=== PATIENT | female | born 1950 | race Caucasian/White ===

== ENCOUNTER 2017-08-27 18:42 | Inpatient (IN) | payer OTHER, MEDICARE ==
[2017-08-27] MEDS ORDERED: Sodium Chloride 0.9% 1,000 ML IV ONE (19:28)
[2017-08-27] MEDS ORDERED: HYDROmorphone 1 mg/mL 1mL Syr IVP STA (19:28)
--- NOTE | 2017-08-27 19:34 | ED Physician Chart ---
ED Chief Complaint/HPI - Patient Information Date Seen:: 08/27/17 Time Seen:: 19:10 Chief Complaint:: abdominal pain History of Present Illness:: Patient had onset yesterday of left lower quadrant abdominal pain. She's been nauseated but had no vomiting or diarrhea. With the patient supine the pain is a 5 out of 10 when she ambulates the pain increases to 9 or 10 out of 10. Patient denies dysuria. Patient has had some diaphoresis but has not taken her temperature. Allergies:: Allergies Allergy/AdvReac Type Severity Reaction Status Date / Time No Known Allergies Allergy Verified 08/27/17 18:56 Vitals:: Vital Signs - 8 hr 08/27/17 18:58 Temp 97.5 F HR 70 RR 18 BP 182/54 O2 Sat % 96 Historian:: Patient, Family Member Review:: Nurse's Note Reviewed ED Review of Systems - Review of Systems General/Constitutional: Diaphoresis Skin: No skin lesions Head: No headache Eyes: No loss of vision ENT: No earache Neck: No neck pain Cardio Vascular: No chest pain, No palpitations Pulmonary: No SOB, No cough GI: Nausea, No vomiting, No diarrhea G/U: No dysuria Musculoskeletal: No bone or joint pain Endocrine: No polyuria, No polydipsia Psychiatric: No prior psych history Hematopoietic: No bruising Allergic/Immuno: No urticaria Neurological: No syncope, No focal symptoms ED Past Medical History - Past Medical History Past Medical History: HTN, Asthma/COPD Family History: Diabetes Melitus Social History: Non Smoker, No Alcohol Surgical History: None Psychiatricy History: None ED Labs/Radiology/EKG Results - Lab Results Results: Laboratory Results - last 24 hr 08/27/17 08/27/17 19:35 19:35 WBC 7.1 RBC 4.58 Hgb 12.8 Hct 37.8 L MCV 82.5 MCH 28.0 MCHC Differential 33.9 RDW 14.0 Plt Count 309 MPV 7.9 Neutrophils % 58.2 Lymphocytes % 25.9 Monocytes % 8.5 Eosinophils % 7.3 H Basophils % 0.1 Sodium 136 Potassium 3.3 L Chloride 103 Carbon Dioxide 25.9 Anion Gap 10.4 BUN 14 Creatinine 0.8 Est GFR ( Amer) > 60.0 Est GFR (Non-Af Amer) > 60.0 BUN/Creatinine Ratio 17.5 Glucose 129 H Calcium 8.9 Lipase 25 - Radiology Results Results: CT of abdomen and pelvis showed diverticulosis and diverticulitis ED Septic Shock - . Is Septic Shock (SBP<90, OR Lactate>4 mmol\L) present?: No - <6hrs of presentation: Vital Signs: Vital Signs - 8 hr 08/27/17 18:58 Temp 97.5 F HR 70 RR 18 BP 182/54 O2 Sat % 96 ED Reassessment (Disposition) - Reassessment Reassessment Condition:: Improved - Diagnosis Diagnosis:: Diverticulosis and diverticulitis - Patient Disposition Admitted to:: Med/Surg Spoke to:: Mian Claros Admitting Medical Physician:: Mian Claros Condition at Disposition:: Stable, Unchanged
[2017-08-27 19:42] LABS: % BASOPHILS 0.1 % (0.0-2.0); % EOSINOPHILS 7.3 % (0.0-5.0); % LYMPHOCYTES 25.9 % (20.0-50.0); % MONOCYTES 8.5 % (2.0-10.0); % NEUTROPHILS 58.2 % (40.0-80.0); HEMATOCRIT 37.8 % (41.0-60); HEMOGLOBIN 12.8 gm/dL (12-16); MEAN CELL VOLUME 82.5 fl (81-100); MEAN CORPUSCULAR HGB CONC 33.9 pg (28.0-36.0); MEAN PLATELET VOLUME 7.9 fl; NEUTROPHILE ABSOLUTE 4.2 Th/cmm (1.8-8.0); PLATELET COUNT 309 Th/cmm (150-400); RED BLOOD COUNT 4.58 Mil/cmm (3.80-5.20); WHITE BLOOD COUNT 7.1 Th/cmm (4.8-10.8)
[2017-08-27 19:56] LABS: ANION GAP 10.4 (7.0-16.0); BUN - UREA NITROGEN 14 mg/dL (7-25); BUN/CREATININE RATIO 17.5; CALCIUM SERUM 8.9 mg/dL (8.6-10.3); CARBON DIOXIDE 25.9 mEq/L (21.0-31.0); CHLORIDE 103 mEq/L (98-107); CREATININE - SERUM 0.8 mg/dL (0.6-1.2); GLUCOSE 129 mg/dL (70-105); LIPASE 25 U/L (11-82); POTASSIUM SERUM 3.3 mEq/L (3.5-5.1); SODIUM SERUM 136 mEq/L (136-145)
[2017-08-27] MEDS ORDERED: HYDROmorphone 1 mg/mL 1mL Syr ONE (20:19)
[2017-08-27] MEDS ORDERED: Potassium Chloride 20 mEq ER Tab PO ONE ×2 (21:59→22:13)
[2017-08-27 23:07] LABS: URINE BILIRUBIN NEGATIVE (NEGATIVE); URINE BLOOD NEGATIVE (NEGATIVE); URINE GLUCOSE (UA) NEGATIVE (NEGATIVE); URINE KETONE NEGATIVE (NEGATIVE); URINE PROTEIN NEGATIVE (NEGATIVE); URINE UROBILINOGEN 0.2 E.U./dL (0.2 - 1.0)
[2017-08-27 23:13] LABS: URINE COLOR STRAW
[2017-08-27 23:20] LABS: URINE BACTERIA NONE SEEN /hpf (NONE SEEN); URINE EPITHELIAL CELLS FEW /lpf (FEW); URINE RBC NONE SEEN /hpf (0-5); URINE WBC 0-2 /hpf (0-5)
[2017-08-28] MEDS: D5-0.45NS 1,000 ML IV SCH ×2 (00:11→18:03)
[2017-08-28 00:23] VITALS: BP 162/84
[2017-08-28] MEDS ORDERED: Morphine Sulfate 2 mg/mL 1mL Syr IVP PRN (00:27)
[2017-08-28] MEDS: Ampicillin Sodium/Sulbactam 3 GM in Sodium Chloride 0.9% 100 ML IV SCH ×4 (00:53→18:02)
--- NOTE | 2017-08-28 08:12 | Diagnostic Imaging Report ---
CT abdomen and pelvis without intravenous contrast Indication: Left lower quadrant pain Comparison: None, Technique: Axial images were obtained from the lung bases to the bilateral proximal femurs without IV contrast. Coronal reconstructions were made. total DLP: 329, CTDI7.6 FINDINGS: Hypoventilatory changes of the lung bases are noted. Assessment of the solid organs is limited due to lack of IV contrast. No evidence of focal hepatic or splenic lesions. No focal pancreatic or adrenal lesions. No evidence of hydronephrosis or focal renal lesions. Distended urinary bladder is noted. No evidence of diverticulosis. There are mild inflammatory changes seen along the small bowel loops seen along the left hemiabdomen with mild areas of small bowel wall thickening and few borderline prominent mesenteric lymph nodes in this region. No evidence of free fluid or free air. Mild atherosclerotic vascular disease is noted. Mild degenerative changes spine and pelvis are noted. IMPRESSION: Minimal haziness and inflammatory changes along the left mid abdomen surrounding small bowel loops with mild areas of small bowel wall prominence and a few mildly prominent mesenteric lymph nodes in this region. Findings may be due to infectious/inflammatory process, possible enteritis. Clinical correlation and follow-up is recommended No evidence of diverticulosis. Mild atherosclerotic vascular disease.
[2017-08-28] MEDS ORDERED: HYDROmorphone 2 mg/mL 1mL Vial IVP PRN (09:02)
--- NOTE | 2017-08-28 10:49 | History & Physical ---
ADMIT DATE: PATIENT IDENTIFICATION: A 67-year-old female. CHIEF COMPLAINT: Lower abdominal pain for last 2 days. HISTORY OF PRESENT ILLNESS: A 67-year-old Citizen Of [place] female with history of hypertension, osteoarthritis, asthma, had colonoscopy done approximately 3 months ago at [facility]. As per patient's account, colonoscopy was unremarkable, but patient was started to have pain 2 days prior to presentation to the Emergency Room at the left lower part of the abdomen. According to the patient, pain started by itself and pain was increasing when she stands up, and when she lies down it decreases. Pain intensity increased to the extent that she needed immediate medical attention. The patient did have associated fever, chills, and nausea. The patient did not have any vomiting. Did not have any hematuria, hematochezia, or melena. No history of any seizure or syncopal episode. The patient does have intermittent constipation, but no alternate diarrhea and constipation. The patient denies any chest pain, shortness of breath, palpitations, or headache. Denies any diplopia. PAST MEDICAL HISTORY: Remarkable for; 1. Hypertension. 2. Asthma. 3. DJD. MEDICATIONS AT HOME: Metoprolol, Lasix, ibuprofen, and albuterol inhaler. ALLERGIES: The patient is not allergic to medications. SOCIAL HISTORY: She lives with family in [facility]. The patient has no history of any smoking cigarette, drinking alcohol, or using street drug use. FAMILY MEDICAL HISTORY: Remarkable for hypertension. REVIEW OF SYSTEMS: As I mentioned in history of present illness. PHYSICAL EXAMINATION: GENERAL: The patient is alert, awake, oriented, lying in the bed. VITAL SIGNS: Temperature 97.1, pulse is 60, respiratory rate 18, and blood pressure 143/78. SKIN: Warm to touch. HEENT: Normocephalic, atraumatic. Extraocular muscles are intact. Tongue more pink and coated. Poor dentition noted. No oral lesion, no exudate. No sinus tenderness. External auditory canal and tympanic membranes are well visualized. NECK: Supple. No JVD, no hepatojugular reflex. No lymphadenopathy, thyromegaly, or carotid bruit. HEART: Both heart sounds are regular. No S3, no S4, no murmur. CHEST: Lung equal in expansion. No wheezing, no crackles. ABDOMEN: Soft. Significant left lower quadrant tenderness noted without guarding or rigidity. Bowel sounds are present. No palpable mass. EXTREMITIES: No edema, no cyanosis, no clubbing. Pulses are +2. No calf tenderness noted. NEUROLOGIC: Nonfocal. AVAILABLE DIAGNOSTIC DATA: CT scan of the abdomen and pelvis done in the Emergency Room, which revealed the patient had evidence of inflammatory changes in the left mid abdomen, surrounding small bowel loops with mild area of small bowel wall prominence and few mildly prominent mesenteric node consistent with infectious and inflammatory process. There was no evidence of diverticulosis noted. LABORATORY DATA: Available white count of 7.1, hemoglobin 12.8, platelet count 309, hematocrit 37.8, eosinophil 7.3, and potassium 3.3. BUN and creatinine 14 and 0.8, glucose of 129. Urine is unremarkable. CLINICAL IMPRESSION: 1. Acute left lower quadrant abdominal pain. CT scan of the abdomen and pelvis consistent with inflammatory changes involving left mid abdomen consistent with acute enteritis and etiology of enteritis probably inflammatory, most likely from infectious etiology, cannot rule out etiology of inflammatory versus ischemic changes considering the patient's age and hypertension with cholesterol status being unknown. 2. Hypertension. 3. Asthma. 4. Degenerative joint disease. PLAN: 1. Admit this patient to Med-Surg floor. 2. IV fluid. 3. IV antibiotic. 4. N.p.o. 5. GI consult. 6. Follow up lab. 7. Follow fitness consultant's recommendation. 8. Physical therapy evaluation. 9. Care plan reviewed and discussed. [facility]# [id number]
[2017-08-28] MEDS ORDERED: VTE Chemical Prophylaxis Screen/Admission MC PRN (13:06)
[2017-08-28] MEDS ORDERED: Probiotic Screen MC PRN (13:51)
[2017-08-29] MEDS: Morphine Sulfate 2 mg/mL 1mL Syr IVP PRN ×4 (00:09→20:41)
[2017-08-29] MEDS: Ampicillin Sodium/Sulbactam 3 GM in Sodium Chloride 0.9% 100 ML IV SCH ×4 (00:09→17:33)
[2017-08-29 06:38] LABS: % BASOPHILS 0.1 % (0.0-2.0); % EOSINOPHILS 1.9 % (0.0-5.0); % LYMPHOCYTES 13.7 % (20.0-50.0); % MONOCYTES 9.4 % (2.0-10.0); % NEUTROPHILS 74.9 % (40.0-80.0); HEMATOCRIT 36.6 % (41.0-60); HEMOGLOBIN 12.5 gm/dL (12-16); MEAN CELL VOLUME 82.1 fl (81-100); MEAN CORPUSCULAR HEMOGLOBIN 28.2 pg (27.0-31.0); MEAN CORPUSCULAR HGB CONC 34.3 pg (28.0-36.0); MEAN PLATELET VOLUME 8.1 fl; NEUTROPHILE ABSOLUTE 6.8 Th/cmm (1.8-8.0); PLATELET COUNT 296 Th/cmm (150-400); RED BLOOD COUNT 4.45 Mil/cmm (3.80-5.20); RED CELL DISTRIBUTION WIDTH 14.2 % (11.5-20.0)
[2017-08-29 06:52] LABS: ALB/GLOB RATIO 1.3 (1.0-1.8); ALKALINE PHOSPHATASE 87 U/L (34-104); ANION GAP 6.6 (7.0-16.0); BILIRUBIN,TOTAL 0.5 mg/dL (0.3-1.0); BUN - UREA NITROGEN 8 mg/dL (7-25); BUN/CREATININE RATIO 11.4; CARBON DIOXIDE 29.8 mEq/L (21.0-31.0); CHLORIDE 104 mEq/L (98-107); CREATININE - SERUM 0.7 mg/dL (0.6-1.2); GLUCOSE 106 mg/dL (70-105); POTASSIUM SERUM 3.4 mEq/L (3.5-5.1); SGOT 49 U/L (13-39); SGPT/ALT 38 U/L (7-52); SODIUM SERUM 137 mEq/L (136-145)
[2017-08-29] MEDS: Lactobacillus Rhamnosus 10 Billion CFU Capsule PO SCH (08:01)
[2017-08-29] MEDS: D5-0.45NS 1,000 ML IV SCH (08:47)
--- NOTE | 2017-08-29 09:09 | GI Progress Note ---
Subjective - Review of Systems Subjective: STILL HAS LEFT SIDED PAIN Objective - Results Result Diagrams: 08/29/17 05:57 08/29/17 05:51 Recent Labs: Laboratory Last Values WBC 9.0 Th/cmm (4.8-10.8) D 08/29/17 05:57 RBC 4.45 Mil/cmm (3.80-5.20) 08/29/17 05:57 Hgb 12.5 gm/dL (12-16) 08/29/17 05:57 Hct 36.6 % (41.0-60) L 08/29/17 05:57 MCV 82.1 fl (81-100) 08/29/17 05:57 MCH 28.2 pg (27.0-31.0) 08/29/17 05:57 MCHC Differential 34.3 pg (28.0-36.0) 08/29/17 05:57 RDW 14.2 % (11.5-20.0) 08/29/17 05:57 Plt Count 296 Th/cmm (150-400) 08/29/17 05:57 MPV 8.1 fl 08/29/17 05:57 Neutrophils % 74.9 % (40.0-80.0) 08/29/17 05:57 Lymphocytes % 13.7 % (20.0-50.0) L 08/29/17 05:57 Monocytes % 9.4 % (2.0-10.0) 08/29/17 05:57 Eosinophils % 1.9 % (0.0-5.0) 08/29/17 05:57 Basophils % 0.1 % (0.0-2.0) 08/29/17 05:57 Sodium 137 mEq/L (136-145) 08/29/17 05:51 Potassium 3.4 mEq/L (3.5-5.1) L 08/29/17 05:51 Chloride 104 mEq/L (98-107) 08/29/17 05:51 Carbon Dioxide 29.8 mEq/L (21.0-31.0) 08/29/17 05:51 Anion Gap 6.6 (7.0-16.0) L 08/29/17 05:51 BUN 8 mg/dL (7-25) 08/29/17 05:51 Creatinine 0.7 mg/dL (0.6-1.2) 08/29/17 05:51 Est GFR ( Amer) > 60.0 ml/min (>90) 08/29/17 05:51 Est GFR (Non-Af Amer) > 60.0 ml/min 08/29/17 05:51 BUN/Creatinine Ratio 11.4 08/29/17 05:51 Glucose 106 mg/dL (70-105) H 08/29/17 05:51 POC Glucose 112 MG/DL (70 - 105) H 08/28/17 10:15 Calcium 9.0 mg/dL (8.6-10.3) 08/29/17 05:51 Total Bilirubin 0.5 mg/dL (0.3-1.0) 08/29/17 05:51 AST 49 U/L (13-39) H 08/29/17 05:51 ALT 38 U/L (7-52) 08/29/17 05:51 Alkaline Phosphatase 87 U/L (34-104) 08/29/17 05:51 Total Protein 6.3 gm/dL (6.0-8.3) 08/29/17 05:51 Albumin 3.5 gm/dL (3.7-5.3) L 08/29/17 05:51 Globulin 2.8 gm/dL 08/29/17 05:51 Albumin/Globulin Ratio 1.3 (1.0-1.8) 08/29/17 05:51 Lipase 25 U/L (11-82) 08/27/17 19:35 Urine Source CLEAN C 08/27/17 20:00 Urine Color STRAW 08/27/17 20:00 Urine Clarity CLEAR (CLEAR) 08/27/17 20:00 Urine pH 6.0 (4.6 - 8.0) 08/27/17 20:00 Ur Specific [place] <= 1.005 (1.005-1.030) 08/27/17 20:00 Urine Protein NEGATIVE mg/dL (NEGATIVE) 08/27/17 20:00 Urine Glucose (UA) NEGATIVE mg/dL (NEGATIVE) 08/27/17 20:00 Urine Ketones NEGATIVE mg/dL (NEGATIVE) 08/27/17 20:00 Urine Blood NEGATIVE (NEGATIVE) 08/27/17 20:00 Urine Nitrate NEGATIVE (NEGATIVE) 08/27/17 20:00 Urine Bilirubin NEGATIVE (NEGATIVE) 08/27/17 20:00 Urine Urobilinogen 0.2 E.U./dL (0.2 - 1.0) 08/27/17 20:00 Ur Leukocyte Esterase TRACE (NEGATIVE) H 08/27/17 20:00 Urine RBC NONE SEEN /hpf (0-5) 08/27/17 20:00 Urine WBC 0-2 /hpf (0-5) 08/27/17 20:00 Ur Epithelial Cells FEW /lpf (FEW) 08/27/17 20:00 Urine Bacteria NONE SEEN /hpf (NONE SEEN) 08/27/17 20:00 Gentamicin Trough 1.9 ug/ml (0.2-2.0) H 08/28/17 21:00 - Physical Exam Vitals and I&O: Vital Signs Temp 97.7 F 08/29/17 08:00 Pulse 61 08/29/17 08:00 Resp 18 08/29/17 08:00 BP 132/72 08/29/17 08:00 Pulse Ox 97 08/29/17 08:00 Intake & Output 08/28/17 08/29/17 08/29/17 18:59 06:59 18:59 Intake Total 1407.333 141.667 957.5 Balance 1407.333 141.667 957.5 Weight (lbs) 68.039 kg Intake: Intake, IV Amount 1407.333 141.667 957.5 Ampicillin Sodium/ 258.333 141.667 Sulbactam 3 gm In Sodium Chloride 0.9% 100 ml @ 100 mls/hr IV Q6HR [facility] Rx #:[id number] D5-0.45NS 1,000 ml @ 75 1042.5 957.5 mls/hr IV .[id number] [facility] Rx #:[id number] Gentamicin 260 mg In 106.5 Sodium Chloride 0.9% 100 ml @ 100 mls/hr IV Q36H [facility] Rx#:[id number] Active Medications: Current Medications Heparin Sodium (Porcine) (Heparin) 5,000 units SUBQ Q12H [facility] Stop: 10/27/17 20:59 Last Admin: 08/29/17 08:02 Dose: 5,000 units Ampicillin Sodium/Sulbactam (Sodium 3 gm/ Sodium Chloride) 100 mls @ 100 mls/ hr IV Q6HR [facility] Stop: 10/27/17 00:00 Last Admin: 08/29/17 05:49 Dose: 100 mls/hr Dextrose/Sodium Chloride (D5-0.45ns) 1,000 mls @ 75 mls/hr IV .[id number] [facility] Stop: 10/26/17 23:56 Last Admin: 08/29/17 08:47 Dose: 75 mls/hr Gentamicin Sulfate 260 mg/ (Sodium Chloride) 106.5 mls @ 100 mls/hr IV Q36H [facility] Stop: 10/27/17 10:59 Last Infusion: 08/28/17 18:37 Dose: Infused Lactobacillus Rhamnosus (Culturelle) 1 each PO DAILY [facility] Stop: 10/28/17 08:59 Last Admin: 08/29/17 08:01 Dose: 1 each Metoprolol Succinate (Toprol Xl) 100 mg PO DAILY [facility] Stop: 10/27/17 10:59 Last Admin: 08/29/17 08:04 Dose: 100 mg Miscellaneous (Gentamicin Iv Per Pharmacy) 1 ea MC PRN [facility] Stop: 10/27/17 09:14 Miscellaneous (Vte Chemical Prophylaxis Screen/ Admission) 1 ea MC PRN PRN PRN Reason: PROTOCOL Stop: 10/27/17 13:05 Miscellaneous (Probiotic Screen) 1 ea MC PRN PRN PRN Reason: PROTOCOL Stop: 10/27/17 13:50 Morphine Sulfate (Morphine) 2 mg IVP Q4HR PRN PRN Reason: Abdominal Pain Stop: 10/27/17 14:41 Last Admin: 08/29/17 06:09 Dose: 2 mg Ondansetron HCl (Zofran) 4 mg IV Q6H PRN PRN Reason: Nausea / Vomiting Stop: 10/27/17 00:27 Last Admin: 08/29/17 08:53 Dose: 4 mg Assessment/Plan - Problem List Patient Problems: All Active Problems LEFT LOWER QUADRANT PAIN (Acute) - Assessment Assessment: 67 YO FEMALE WITH LLQ PAIN CT SHOWED ENTERITIS 1.CHECK SBFT 2.CONT ABX
[2017-08-29] MEDS ORDERED: Diatrizoate Meglumine/Diatri 30 mL Sol PO ONE (09:10)
--- NOTE | 2017-08-29 13:34 | Consultation ---
DATE OF CONSULTATION: 08/28/2017 REASON FOR CONSULTATION: Abdominal pain, nausea, vomiting. HISTORY OF PRESENT ILLNESS: This consult was obtained through the request of Dr. Claros for this 67-year-old with history of hypertension, asthma, degenerative joint disease, presenting to the hospital with abdominal pain of 2 days duration involving the left side with the back as well. The patient had fever. She has lost few pounds of weight. She had constipation. The patient was admitted with impression she might have diverticulitis, but had a CAT scan, which did not show that, but showed possible enteritis. The patient seems very sick, nauseated. It seemed the nausea started after she came to the hospital. PAST MEDICAL HISTORY: Hypertension, asthma, degenerative joint disease. PAST SURGICAL HISTORY: Negative. SOCIAL HISTORY: Nonsmoker, nonalcoholic, IV drug abuser. FAMILY HISTORY: Noncontributory. ALLERGIES: No known drug allergy. MEDICATIONS: The patient is on amoxicillin, gentamicin, Dilaudid, metoprolol, Zofran. REVIEW OF SYSTEMS: Few pounds of weight loss. No diarrhea. She occasionally has constipation. She had fever. PHYSICAL EXAMINATION: GENERAL: The patient is awake, oriented to self, place, and time, moderately severe distress secondary to nausea and pain. VITAL SIGNS: Blood pressure is 140/81, heart rate 70, respiratory rate 16, temperature is 97.5. HEAD AND NECK: Pupils reactive to light. Extraocular muscles intact. Sclerae are anicteric. Conjunctivae not pale. Oral cavity, no lesion. NECK: Supple, no jugular venous distention, no carotid bruit or lymph node. CHEST: She has good respiratory movements. LUNGS: Clear to auscultation. CARDIOVASCULAR: Regular rate and rhythm. No murmur or gallop. ABDOMEN: Soft, positive bowel sound, positive left-sided tenderness. EXTREMITIES: No edema. CENTRAL NERVOUS SYSTEM: Grossly nonfocal. LABORATORY DATA: White count is normal, H and H normal. Glucose 129. Liver enzymes were not tested. X-RAYS: The patient had a CAT scan with oral contrast, which showed some haziness and inflammation around the left mid abdomen, around the small bowel loops and some prominence of the cintron and mesenteric lymph nodes and possibility of enteritis was raised. There is no diverticulosis. ASSESSMENT AND PLAN: 1. Abdominal pain, nausea, and vomiting, this picture is consistent was enteritis. The patient already had a colonoscopy 3 months ago, so at this time, this most likely infectious enteritis. So recommendations: 1. IV fluids. 2. IV antibiotics. 3. Stool studies for O and P, C and S. 4. If patient is improving, continue, if not small bowel follow through. 2. Nausea, vomiting, most probably secondary to #1. We will continue with antibiotics and Zofran, if not improving, might consider changing the antibiotics. Other medical problems include hypertension, asthma, degenerative joint disease, etc., as per Dr. Claros. Thank you, Dr. Claros for allowing me to participate in the care of the patient. If you have any further questions, please let me know. JOB# [id number]
[2017-08-29 17:51] LABS: % BASOPHILS 0.3 % (0.0-2.0); % EOSINOPHILS 1.3 % (0.0-5.0); % LYMPHOCYTES 16.5 % (20.0-50.0); % MONOCYTES 5.3 % (2.0-10.0); % NEUTROPHILS 76.6 % (40.0-80.0); HEMOGLOBIN 12.8 gm/dL (12-16); MEAN CELL VOLUME 83.4 fl (81-100); MEAN CORPUSCULAR HEMOGLOBIN 27.9 pg (27.0-31.0); MEAN CORPUSCULAR HGB CONC 33.5 pg (28.0-36.0); MEAN PLATELET VOLUME 7.7 fl; PLATELET COUNT 333 Th/cmm (150-400); RED BLOOD COUNT 4.56 Mil/cmm (3.80-5.20); RED CELL DISTRIBUTION WIDTH 14.2 % (11.5-20.0); WHITE BLOOD COUNT 7.8 Th/cmm (4.8-10.8)
[2017-08-29] MEDS: metroNIDAZOLE 500mg/NS 100mL 500 MG/100 ML BAG IV SCH (20:42)
[2017-08-30] MEDS: Ampicillin Sodium/Sulbactam 3 GM in Sodium Chloride 0.9% 100 ML IV SCH ×5 (00:42→23:34)
[2017-08-30] MEDS: D5-0.45NS 1,000 ML IV SCH ×2 (00:42→20:01)
[2017-08-30] MEDS: Morphine Sulfate 2 mg/mL 1mL Syr IVP PRN ×4 (00:42→20:02)
[2017-08-30] MEDS: Anusol Supp RC SCH ×2 (00:43→20:07)
[2017-08-30] MEDS: metroNIDAZOLE 500mg/NS 100mL 500 MG/100 ML BAG IV SCH ×3 (04:26→20:08)
[2017-08-30] MEDS: Lactobacillus Rhamnosus 10 Billion CFU Capsule PO SCH (08:30)
[2017-08-30 09:00] LABS: % BASOPHILS 0.3 % (0.0-2.0); % EOSINOPHILS 2.5 % (0.0-5.0); % LYMPHOCYTES 21.3 % (20.0-50.0); % MONOCYTES 9.7 % (2.0-10.0); % NEUTROPHILS 66.2 % (40.0-80.0); HEMATOCRIT 36.6 % (41.0-60); HEMOGLOBIN 12.1 gm/dL (12-16); MEAN CELL VOLUME 83.4 fl (81-100); MEAN CORPUSCULAR HEMOGLOBIN 27.5 pg (27.0-31.0); MEAN PLATELET VOLUME 7.6 fl; NEUTROPHILE ABSOLUTE 4.5 Th/cmm (1.8-8.0); PLATELET COUNT 325 Th/cmm (150-400); RED BLOOD COUNT 4.39 Mil/cmm (3.80-5.20); RED CELL DISTRIBUTION WIDTH 13.9 % (11.5-20.0); WHITE BLOOD COUNT 6.7 Th/cmm (4.8-10.8)
--- NOTE | 2017-08-30 09:02 | GI Progress Note ---
Subjective - Review of Systems Subjective: STILL HAS LEFT SIDED PAIN BUT SLIGHTLY BETTER LAST NIGHT HAD BLOOD WITH BM NO DIARRHEA OR BLEEDING TODAY Objective - Results Result Diagrams: 08/29/17 17:43 08/29/17 05:51 Recent Labs: Laboratory Last Values WBC 7.8 Th/cmm (4.8-10.8) 08/29/17 17:43 RBC 4.56 Mil/cmm (3.80-5.20) 08/29/17 17:43 Hgb 12.8 gm/dL (12-16) 08/29/17 17:43 Hct 38.0 % (41.0-60) L 08/29/17 17:43 MCV 83.4 fl (81-100) 08/29/17 17:43 MCH 27.9 pg (27.0-31.0) 08/29/17 17:43 MCHC Differential 33.5 pg (28.0-36.0) 08/29/17 17:43 RDW 14.2 % (11.5-20.0) 08/29/17 17:43 Plt Count 333 Th/cmm (150-400) 08/29/17 17:43 MPV 7.7 fl 08/29/17 17:43 Neutrophils % 76.6 % (40.0-80.0) 08/29/17 17:43 Lymphocytes % 16.5 % (20.0-50.0) L 08/29/17 17:43 Monocytes % 5.3 % (2.0-10.0) 08/29/17 17:43 Eosinophils % 1.3 % (0.0-5.0) 08/29/17 17:43 Basophils % 0.3 % (0.0-2.0) 08/29/17 17:43 Sodium 137 mEq/L (136-145) 08/29/17 05:51 Potassium 3.4 mEq/L (3.5-5.1) L 08/29/17 05:51 Chloride 104 mEq/L (98-107) 08/29/17 05:51 Carbon Dioxide 29.8 mEq/L (21.0-31.0) 08/29/17 05:51 Anion Gap 6.6 (7.0-16.0) L 08/29/17 05:51 BUN 8 mg/dL (7-25) 08/29/17 05:51 Creatinine 0.7 mg/dL (0.6-1.2) 08/29/17 05:51 Est GFR ( Amer) > 60.0 ml/min (>90) 08/29/17 05:51 Est GFR (Non-Af Amer) > 60.0 ml/min 08/29/17 05:51 BUN/Creatinine Ratio 11.4 08/29/17 05:51 Glucose 106 mg/dL (70-105) H 08/29/17 05:51 POC Glucose 112 MG/DL (70 - 105) H 08/28/17 10:15 Calcium 9.0 mg/dL (8.6-10.3) 08/29/17 05:51 Total Bilirubin 0.5 mg/dL (0.3-1.0) 08/29/17 05:51 AST 49 U/L (13-39) H 08/29/17 05:51 ALT 38 U/L (7-52) 08/29/17 05:51 Alkaline Phosphatase 87 U/L (34-104) 08/29/17 05:51 Total Protein 6.3 gm/dL (6.0-8.3) 08/29/17 05:51 Albumin 3.5 gm/dL (3.7-5.3) L 08/29/17 05:51 Globulin 2.8 gm/dL 08/29/17 05:51 Albumin/Globulin Ratio 1.3 (1.0-1.8) 08/29/17 05:51 Lipase 25 U/L (11-82) 08/27/17 19:35 Urine Source CLEAN C 08/27/17 20:00 Urine Color STRAW 08/27/17 20:00 Urine Clarity CLEAR (CLEAR) 08/27/17 20:00 Urine pH 6.0 (4.6 - 8.0) 08/27/17 20:00 Ur Specific [place] <= 1.005 (1.005-1.030) 08/27/17 20:00 Urine Protein NEGATIVE mg/dL (NEGATIVE) 08/27/17 20:00 Urine Glucose (UA) NEGATIVE mg/dL (NEGATIVE) 08/27/17 20:00 Urine Ketones NEGATIVE mg/dL (NEGATIVE) 08/27/17 20:00 Urine Blood NEGATIVE (NEGATIVE) 08/27/17 20:00 Urine Nitrate NEGATIVE (NEGATIVE) 08/27/17 20:00 Urine Bilirubin NEGATIVE (NEGATIVE) 08/27/17 20:00 Urine Urobilinogen 0.2 E.U./dL (0.2 - 1.0) 08/27/17 20:00 Ur Leukocyte Esterase TRACE (NEGATIVE) H 08/27/17 20:00 Urine RBC NONE SEEN /hpf (0-5) 08/27/17 20:00 Urine WBC 0-2 /hpf (0-5) 08/27/17 20:00 Ur Epithelial Cells FEW /lpf (FEW) 08/27/17 20:00 Urine Bacteria NONE SEEN /hpf (NONE SEEN) 08/27/17 20:00 Stool Leukocyte NO WBC SEEN 08/29/17 11:50 Gentamicin Trough 1.9 ug/ml (0.2-2.0) H 08/28/17 21:00 - Physical Exam Vitals and I&O: Vital Signs Temp 98.5 F 08/30/17 08:00 Pulse 60 08/30/17 08:29 Resp 18 08/30/17 08:00 BP 153/74 08/30/17 08:29 Pulse Ox 96 08/30/17 08:00 Intake & Output 08/29/17 08/30/17 08/30/17 18:59 06:59 18:59 Intake Total 1657.5 1556.5 100 Balance 1657.5 1556.5 100 Weight (lbs) 68.039 kg 59.421 kg Intake: Intake, IV Amount 1157.5 1406.5 100 Ampicillin Sodium/ 200 100 100 Sulbactam 3 gm In Sodium Chloride 0.9% 100 ml @ 100 mls/hr IV Q6HR [facility] Rx #:[id number] D5-0.45NS 1,000 ml @ 75 957.5 1000 mls/hr IV .[id number] [facility] Rx #:[id number] Gentamicin 260 mg In 106.5 Sodium Chloride 0.9% 100 ml @ 100 mls/hr IV Q36H [facility] Rx#:[id number] metroNIDAZOLE 500mg/NS 200 100mL 500 mg In 100 ml @ 100 mls/hr IV Q8HR [facility] Rx #:[id number] Oral 500 150 Other: # Voids 4 3 # Bowel Movements 3 3 Stool Characteristics Liquid Liquid Bloody Bloody Active Medications: Current Medications Heparin Sodium (Porcine) (Heparin) 5,000 units SUBQ Q12H [facility] Stop: 10/27/17 20:59 Last Admin: 08/30/17 08:29 Dose: 5,000 units Ampicillin Sodium/Sulbactam (Sodium 3 gm/ Sodium Chloride) 100 mls @ 100 mls/ hr IV Q6HR [facility] Stop: 10/27/17 00:00 Last Infusion: 08/30/17 07:16 Dose: Infused Dextrose/Sodium Chloride (D5-0.45ns) 1,000 mls @ 75 mls/hr IV .[id number] [facility] Stop: 10/26/17 23:56 Last Admin: 08/30/17 00:42 Dose: 75 mls/hr Gentamicin Sulfate 260 mg/ (Sodium Chloride) 106.5 mls @ 100 mls/hr IV Q36H [facility] Stop: 10/27/17 10:59 Last Infusion: 08/30/17 00:44 Dose: Infused Metronidazole (Flagyl) 500 mg in 100 mls @ 100 mls/hr IV Q8HR [facility] Stop: 10/28/17 20:59 Last Infusion: 08/30/17 05:26 Dose: Infused Lactobacillus Rhamnosus (Culturelle) 1 each PO DAILY [facility] Stop: 10/28/17 08:59 Last Admin: 08/30/17 08:30 Dose: 1 each Metoprolol Succinate (Toprol Xl) 100 mg PO DAILY [facility] Stop: 10/27/17 10:59 Last Admin: 08/30/17 08:29 Dose: 100 mg Miscellaneous (Gentamicin Iv Per Pharmacy) 1 ea PRN [facility] Stop: 10/27/17 09:14 Miscellaneous (Vte Chemical Prophylaxis Screen/ Admission) 1 ea PRN PRN PRN Reason: PROTOCOL Stop: 10/27/17 13:05 Miscellaneous (Probiotic Screen) 1 ea PRN PRN PRN Reason: PROTOCOL Stop: 10/27/17 13:50 Morphine Sulfate (Morphine) 2 mg IVP Q4HR PRN PRN Reason: Abdominal Pain Stop: 10/27/17 14:41 Last Admin: 08/30/17 08:35 Dose: 2 mg Ondansetron HCl (Zofran) 4 mg IV Q6H PRN PRN Reason: Nausea / Vomiting Stop: 10/27/17 00:27 Last Admin: 08/29/17 08:53 Dose: 4 mg Starch (Anusol) 1 sup RC HS [facility] Stop: 10/29/17 00:09 Last Admin: 08/30/17 00:43 Dose: 1 sup Assessment/Plan - Problem List Patient Problems: All Active Problems LEFT LOWER QUADRANT PAIN (Acute) - Assessment Assessment: 67 YO FEMALE WITH LLQ PAIN CT SHOWED ENTERITIS BLOOD IN STOOL LIKELY HEMORRHOIDAL 1.CHECK SBFT 2.CONT ABX 3.CONT ANUSOL
[2017-08-30 09:13] LABS: ALB/GLOB RATIO 1.4 (1.0-1.8); ALKALINE PHOSPHATASE 98 U/L (34-104); BILIRUBIN,TOTAL 0.4 mg/dL (0.3-1.0); BUN - UREA NITROGEN 9 mg/dL (7-25); BUN/CREATININE RATIO 12.9; CALCIUM SERUM 8.8 mg/dL (8.6-10.3); CARBON DIOXIDE 28.8 mEq/L (21.0-31.0); CHLORIDE 103 mEq/L (98-107); CREATININE - SERUM 0.7 mg/dL (0.6-1.2); GLUCOSE 108 mg/dL (70-105); SGOT 42 U/L (13-39); SGPT/ALT 34 U/L (7-52); SODIUM SERUM 137 mEq/L (136-145)
[2017-08-30 09:19] LABS: POTASSIUM SERUM 2.8 mEq/L (3.5-5.1)
--- NOTE | 2017-08-30 10:01 | Diagnostic Imaging Report ---
Small bowel follow-through HISTORY: Pain Radiopaque contrast was administered orally. The preliminary pumper helper radiograph demonstrates a nonspecific gas pattern of nondilated bowel. Limited views of the stomach are unremarkable with no obvious focal abnormalities. Air is free flow of contrast from the stomach into the small bowel. There is a normal small bowel caliber and mucosal fold pattern. No definite focal abnormalities are seen. Normal transit time to the colon. IMPRESSION: Normal examination.
[2017-08-31] MEDS: Morphine Sulfate 2 mg/mL 1mL Syr IVP PRN ×3 (00:59→11:48)
[2017-08-31] MEDS: D5-0.45NS 1,000 ML IV SCH (01:23)
[2017-08-31] MEDS: metroNIDAZOLE 500mg/NS 100mL 500 MG/100 ML BAG IV SCH ×2 (04:39→13:57)
[2017-08-31 05:23] LABS: % BASOPHILS 0.4 % (0.0-2.0); % EOSINOPHILS 3.8 % (0.0-5.0); % MONOCYTES 8.5 % (2.0-10.0); % NEUTROPHILS 61.3 % (40.0-80.0); HEMATOCRIT 36.6 % (41.0-60); HEMOGLOBIN 11.9 gm/dL (12-16); MEAN CELL VOLUME 83.5 fl (81-100); MEAN CORPUSCULAR HEMOGLOBIN 27.1 pg (27.0-31.0); MEAN CORPUSCULAR HGB CONC 32.5 pg (28.0-36.0); MEAN PLATELET VOLUME 8.3 fl; NEUTROPHILE ABSOLUTE 4.6 Th/cmm (1.8-8.0); PLATELET COUNT 314 Th/cmm (150-400); RED BLOOD COUNT 4.38 Mil/cmm (3.80-5.20); WHITE BLOOD COUNT 7.4 Th/cmm (4.8-10.8)
[2017-08-31] MEDS: Ampicillin Sodium/Sulbactam 3 GM in Sodium Chloride 0.9% 100 ML IV SCH ×2 (05:36→12:37)
[2017-08-31 05:54] LABS: ALB/GLOB RATIO 1.4 (1.0-1.8); ALKALINE PHOSPHATASE 95 U/L (34-104); ANION GAP 7.3 (7.0-16.0); BILIRUBIN,TOTAL 0.5 mg/dL (0.3-1.0); BUN - UREA NITROGEN 9 mg/dL (7-25); BUN/CREATININE RATIO 12.9; CALCIUM SERUM 8.9 mg/dL (8.6-10.3); CARBON DIOXIDE 26.8 mEq/L (21.0-31.0); CHLORIDE 105 mEq/L (98-107); CREATININE - SERUM 0.7 mg/dL (0.6-1.2); GLUCOSE 97 mg/dL (70-105); POTASSIUM SERUM 3.1 mEq/L (3.5-5.1); SGOT 48 U/L (13-39); SGPT/ALT 35 U/L (7-52); SODIUM SERUM 136 mEq/L (136-145)
[2017-08-31] MEDS: Lactobacillus Rhamnosus 10 Billion CFU Capsule PO SCH (08:27)
[2017-08-31] MEDS ORDERED: Potassium Chloride 20 mEq ER Tab PO ONE (09:40)
--- NOTE | 2017-09-01 07:30 | Discharge Summary ---
DATE OF DISCHARGE: 08/31/2017 PRINCIPAL DIAGNOSES: 1. Acute left lower quadrant pain secondary to enteritis involving the left side. 2. Electrolyte imbalance. 3. Hemorrhoids. 4. Hypertension. 5. History of asthma. 6. Degenerative joint disease. 7. Debility. BRIEF STATEMENT FOR REASON FOR ADMISSION: A 67-year-old female presented to Emergency Room for acute onset of left lower quadrant pain associated with nausea. A CAT scan of the abdomen and pelvis was abnormal with enteritis. The patient was admitted to the hospital for further treatment. Please refer to my dictated medical H and P for further information. HOSPITAL COURSE: The patient was admitted to med/surg floor. The patient was kept n.p.o., IV fluids, IV antibiotics were given. GI consultation was requested. The patient did have a stool study, which was negative for any enteric pathogen. C. diff toxin was also reported normal. The patient did have MRSA screening, which was also negative. We did have small bowel follow through which was also reported normal. The patient was receiving acute care and the patient continues to show some improvement. The patient was placed on clear liquid diet and patient was tolerating diet fairly well. The patient did not have any pain. Diet was advanced. The patient did have electrolyte imbalance which was corrected as well. It was noted the patient had hemorrhoids, and for that Anusol HC cream was given. I did discuss with the patient and her family about discharge plan to home as well. The patient is discharged home with Augmentin and Flagyl to be continued for 10 days along with probiotics. The patient will take pain killer, tramadol 50 mg q.8h. p.r.n. along with Anusol as rectal suppository for her hemorrhoids. Sitz bath is also recommended as well. ambulance mechanic is used. The patient has been advised to see her blood bank assistant in 1 week and tableau analyst after 2 weeks as well. If recurrent symptoms, the patient is advised to go to the Emergency Room. I did, however, discuss with her skilled nursing case manager from [place]. Home health was also arranged as well. JOB# [id number]
== END 2017-08-31 15:40 | disposition home or self-care (01) | DRG 392 ==
LOC: ER 18:42 → MSI 23:30
PROVIDERS: ADMIT Internal Medicine; ATTEND Internal Medicine
DX: A09 Infectious gastroenteritis and colitis, unspecified (principal); E87.8 Other disorders of electrolyte and fluid balance, not elsewhere classified; I10 Essential (primary) hypertension; J45.909 Unspecified asthma, uncomplicated; M19.90 Unspecified osteoarthritis, unspecified site; K59.00 Constipation, unspecified; K64.9 Unspecified hemorrhoids; Z83.3 Family history of diabetes mellitus
CPT/HCPCS: 36415-UA; 74250-TC; 80048-TC; 80053-TC; 80170-TC; 81001-TC; 82948-90; 83690-TC; 85025-TC; 87209-90; 87230-TC; 89055-TC; 90799; 96374; J0295; J1170; J1580; J1644; J2270; J2405; J3480; J7030